=== PATIENT | female | born 1955 | race Caucasian/White ===

== ENCOUNTER → 2021-01-04 11:18 | Outpatient (CLI) | payer MEDICARE, OTHER, SELFPAY ==
--- NOTE | 2021-01-04 11:22 | DI.MG.S_ITS ---
BILATERAL DIGITAL DIAGNOSTIC MAMMOGRAM 3D/2D POST LUMPECTOMY: 01/04/2021 CLINICAL: Right breast lump. Comparison is made to exams dated: 08/08/2013 mammogram, 08/30/2013 mammogram, and 08/09/2019 mammogram - outside facility. The tissue of both breasts is predominantly fatty. There is an irregular high density mass with a spiculated margin and grouped linear heterogeneous pleomorphic calcifications in the right breast at 8 o'clock middle depth. No other significant masses, calcifications, or other findings are seen in either breast. IMPRESSION: INCOMPLETE: NEEDS ADDITIONAL IMAGING EVALUATION The irregular high density mass in the right breast is indeterminate. An ultrasound is recommended. This exam was interpreted at Station ID: [id number]. NOTE: For mammograms, a report in lay terms will be sent to the patient. Approximately 15% of breast malignancies will not be visualized mammographically. In the management of a palpable breast mass, a negative mammogram must not discourage biopsy of a clinically suspicious lesion. Electronically Signed By: Kj Souza M.D., jr/airam:01/04/2021 15:09:53 ACR BI-RADS Category 0: Incomplete 3340F
--- NOTE | 2021-01-04 11:22 | DI.US.S_ITS ---
LIMITED ULTRASOUND OF RIGHT BREAST AND AXILLA: 01/04/2021 CLINICAL: Palpable right breast lump. Comparison is made to exams dated: 01/04/2021 mammogram - [facility], 08/09/2019 mammogram, and 08/30/2013 mammogram - outside facility. Ultrasound of the right breast 7-11 o'clock, and axilla regions was performed. There is a new 1.1 cm x 0.8 cm x 1.1 cm taller than wide irregular mass in the right breast at 9 o'clock middle depth. This irregular mass is hypoechoic. IMPRESSION: SUSPICIOUS OF MALIGNANCY The new 1.1 cm x 0.8 cm x 1.1 cm taller than wide irregular mass in the right breast is suspicious of malignancy. An ultrasound guided biopsy is recommended. This exam was interpreted at Station ID: [id number]. Electronically Signed By: Kj Souza M.D., jr/airam:01/04/2021 15:12:32 letter sent: Biopsy Required Ultrasound BI-RADS: 4 Suspicious for malignancy
[2021-01-04 11:50] LABS: 585 Gram Check PASS; Dizziness NO; Postdiastolic BP 79; Postsystolic BP 144; Prediastolic 78; Presystolic 142; Pulse 77; Site of phlebotomy RAC; Swelling NO; Temperature 97.9; Zero Check Sebra Scale PASS
[2021-01-04 11:51] LABS: Therapeutic Phleb Comment NO COMMENT
== END ==
PROVIDERS: PCP Family Medicine; Referring Provider Internal Medicine Medical Oncology; Visit Provider Family Medicine
DX: R92.8 Other abnormal and inconclusive findings on diagnostic imaging of breast; N63.13 Unspecified lump in the right breast, lower outer quadrant; D75.1 Secondary polycythemia; Z85.3 Personal history of malignant neoplasm of breast
CPT/HCPCS: 76642; 77066; 99195; G0279

== ENCOUNTER → 2021-01-16 10:18 | Outpatient (CLI) | payer MEDICARE, OTHER, SELFPAY ==
[2021-01-16 20:12] LABS: COVID19 - ORCAS (NP or Nasal) Negative (Negative)
== END ==
PROVIDERS: Physician Assistant Medical; PCP Family Medicine; Visit Provider Physician Assistant
DX: Z20.822 Contact with and (suspected) exposure to COVID-19 (principal)
CPT/HCPCS: C9803; U0003

== ENCOUNTER → 2021-01-25 10:39 | Outpatient (CLI) | payer MEDICARE, OTHER, SELFPAY ==
--- NOTE | 2021-01-25 | DI.MG.S_ITS ---
UNILATERAL RIGHT DIGITAL DIAGNOSTIC MAMMOGRAM 3D/2D POST-PROCEDURE IMAGING FOR MARKER PLACEMENT: 01/25/2021 CLINICAL: Right post clip. Comparison is made to exams dated: 01/04/2021 ultrasound, 01/04/2021 mammogram - [facility], and 08/09/2019 mammogram - outside facility. The tissue of right breast is predominantly fatty. There is an irregular high density mass with a spiculated margin and grouped linear heterogeneous pleomorphic calcifications in the right breast at 8 o'clock middle depth. A biopsy marker clip adjacent to this mass is present. No other significant masses or calcifications are seen in the breast. IMPRESSION: INCOMPLETE: NEEDS ADDITIONAL IMAGING EVALUATION Post biopsy film demonstrates appropriate positioning of marker clip. This exam was interpreted at Station ID: [id number]. NOTE: For mammograms, a report in lay terms will be sent to the patient. Approximately 15% of breast malignancies will not be visualized mammographically. In the management of a palpable breast mass, a negative mammogram must not discourage biopsy of a clinically suspicious lesion. Electronically Signed By: Leigha waite/:01/25/2021 14:26:51 ACR BI-RADS Category 0: Incomplete 3340F
--- NOTE | 2021-01-25 | PATH_ITS ---
[facility] Accession Number: [id number] . 01 Material submitted: . breast - RIGHT BREAST MASS 9:30 5 CENTIMETERS FROM NIPPLE . 01 Diagnosis: Right Breast Mass, 9:30, 5 cm from the Nipple, Needle Core Biopsy: Invasive mammary carcinoma. Histologic type: Ductal. Histologic grade: Poorly differentiated, grade 3/3. Combined total Reji histologic score: 8 (tubule formation score 3/3, nuclear pleomorphism score 2/3, mitotic score 3/3). Largest linear dimension of invasive carcinoma: 5 mm. 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 See comment. Lymphovascular invasion: See comment. . MRV 01/28/2021 1321 Local . 01 Comment: There are circumscribed areas of necrosis with associated calcifications which may represent DCIS. There is necrotic tumor present in a vessel lumen which likely represents carryover tumor. Predictive and prognostic breast markers will be performed and the results will be reported in an addendum. As part of ongoing billing and quality technician, this case is also reviewed by Dr. Danielle Gutierrez, who concurs with the given interpretation. Findings were called to Dr.James Wynn on 01/28/2021 at 115 hours by . . 01 Electronically signed: . Cookie Rosenthal MD, Pathologist NPI- [id number] . 01 Gross description: . Received in formalin, labeled RT breast 9:30, are six fragments of mitchell adipose tissue measuring 1.5 x 0.2 x 0.1 cm to 0.3 x 0.3 x 0.2 cm. All six fragments are entirely submitted in cassette A1. Collection date and time is listed as 01/25/21 at 10:50 a.m., for a total fixation time of approximately 53 hours. ([id number]) /FRR 01/26/2021 [facility] . Pathologist provided ICD-10: N63.10, C50.911 . 01 CPT . 894684 Performed at: 01 [facility] [address] [address], [place], [place] [id number] MD Ambrosio Oneal MD Phone: [phone]
--- NOTE | 2021-01-25 10:41 | DI.US.S_ITS ---
ULTRASOUND GUIDED BIOPSY RIGHT BREAST WITH MARKING DEVICE INSERTED AND POST DIGITAL MAMMOGRAPHIC IMAGIN01/25/2021 CLINICAL: Right breast mass. PATIENT CONSENT: Risks (minor bleeding, infection, vasovagal reaction and repeat procedure), benefits and alternatives were explained to the patient and written informed consent was obtained. Correlation is made to exams dated: 01/25/2021 mammogram, 01/04/2021 ultrasound, 01/04/2021 mammogram - [facility], 08/09/2019 mammogram, 08/30/2013 mammogram, and 08/08/2013 mammogram - outside facility. An ultrasound guided biopsy using real-time ultrasound was performed for the 1.1 cm x 0.8 cm x 1.1 cm abnormality located in the right breast at 9 o'clock middle depth. The skin was prepped in the usual manner. A biopsy needle was placed adjacent to the abnormality under ultrasound guidance. Once the needle was documented to be in the correct location, a specimen was obtained using an automated biopsy gun. A biopsy marker clip was deployed. The specimen was sent to the laboratory for pathological analysis. IMPRESSION: ULTRASOUND GUIDED BIOPSY MALIGNANT Ultrasound guided biopsy of the 1.1 cm x 0.8 cm x 1.1 cm mass in the right breast at 9 o'clock middle depth was successful. Pathology indicates malignant invasive mammary carcinoma (IMC) and ductal carcinoma in situ (DCIS). Pathology results are concordant with mammography and ultrasound findings. Surgical and oncologic consultation are recommended. This exam was interpreted at Station ID: [id number]. Leigha waite,monalisa/:01/29/2021 11:20:16
== END ==
PROVIDERS: PCP Family Medicine; Referring Provider Family Medicine; Visit Provider Family Medicine
DX: C50.411 Malignant neoplasm of upper-outer quadrant of right female breast (principal); Z85.3 Personal history of malignant neoplasm of breast
CPT/HCPCS: 19083; 77065

== ENCOUNTER → 2021-02-20 15:01 | Outpatient (CLI) | payer MEDICARE, BC, SELFPAY ==
[2021-02-20 17:11] LABS: COVID19 -Nasal RAPID Negative (Negative)
== END ==
PROVIDERS: PCP Family Medicine; Referring Provider Surgery; Visit Provider Surgery
DX: Z20.822 Contact with and (suspected) exposure to COVID-19 (principal); Z01.812 Encounter for preprocedural laboratory examination
CPT/HCPCS: 87635; C9803

== ENCOUNTER 2021-02-21 11:56 | Day surgery (SDC) | payer MEDICARE, BC, SELFPAY ==
[2021-02-21 12:11] VITALS: BMI 25.8
[2021-02-21 12:28] VITALS: BP 100/65; PULSE 67; RESP 16; TEMP 36.7; O2SAT 98
[2021-02-21] MEDS: LACTATED RINGERS 1,000 ML 42 ML IV (12:48)
--- NOTE | 2021-02-21 13:04 | PM.HP.1 ---
History of Present Illness History of Present Illness Date Patient Seen: 02/21/21 Time Patient Seen: 13:04 Chief complaint: SCREENING COLONOSCOPY Narrative: The patient presents for colorectal sreening. She had a previous colonoscopy 6 years ago demonstrated benign polyps. No personal or family history of colon cancer. On further history denies any recent gastrointestinal symptoms. No nausea, vomiting, abdominal pain, loss of appetite, unexplained weight loss, change in bowel habits, diarrhea, constipation, melena, hematochezia, or bright red blood per rectum. Patient History Medical History Arthritis Asthma Breast cancer Constipation Fibromyalgia syndrome Hx: UTI (urinary tract infection) Hypothyroid Mild obstructive sleep apnea Family & Social History Social History: household members spouse Tobacco & Substance use: Smoking Status Never smoker alcohol intake never Substance Use Type does not use Meds Home Medications and Allergies Home Medications Medication Instructions Recorded Confirmed Type naturethroid 90 mg PO DAILY 09/24/20 02/21/21 History Allergies Allergy/AdvReac Type Severity Reaction Status Date / Time moxifloxacin [From Avelox] AdvReac Mild Dizziness Verified 02/21/21 11:57 procaine [From Novocain] AdvReac Mild palpitation, Verified 02/21/21 11:57 lightheadedness Exam Vital Signs (past 8 hours): - 02/21/21 12:28 Temperature 98.1 F Pulse Rate 67 Respiratory Rate 16 Blood Pressure 100/65 Pulse Oximetry 98 Oxygen Delivery Method Room Air Narrative Exam Narrative: Constitutional-She is oriented to person, place and time. No apparent distress Cardiovascular- regular rate, no peripheral edema Pulmonary-unlabored respiratory effort, no audible wheezing Abdominal-soft, non-tender, non-distended Musculoskeletal-no cyanosis or clubbing Neurological-nonfocal, normal strength throughout Skin-warm and dry Assessment & Plan Assessment and plan (1) Colon polyp: Qualifiers: Colon polyp type: unspecified Colon location: unspecified part of colon Qualified Code(s): K63.5 - Polyp of colon Status: Acute Assessment & Plan narrative: The patient requires colorectal screening and colonoscopy is recommended. Technical details were discussed. Risks, benefits, alternatives explained. Risks including but not limited to myocardial infarction, aspiration, bleeding, pain, missed lesion, incomplete examination, need for further radiographic studies, colonic perforation, and need for major abdominal surgery were discussed. All questions were answered to their satisfaction, and they are in agreement with this plan. Time Spent With Patient Critical Care time: I spent a total of [] minutes of critical care time on this patient's care today; this time is exclusive of procedural time.
[2021-02-21] MEDS: fentaNYL 250 MCG/5 ML INJ IV (13:16)
[2021-02-21] MEDS: MIDAZOLAM 5 MG/5 ML VIAL IV (13:17)
--- NOTE | 2021-02-21 13:35 | PM.OP.COLON ---
Operative Date/Time/Diagnoses Date of procedure: 02/21/21 Time of procedure: 13:35 Pre-op diagnosis: Personal history of colonic polyps Post-op diagnosis: same Procedure & Clinicians Study performed: Colonoscopy Same procedure as scheduled: Yes Indications: Personal history of colonic polyps Surgeon: Roni Amaya Procedure Notes Procedure in detail: Medications: Conscious sedation using 5mg IV midazolam and 150mcg IV of fentanyl The history and physical was performed/updated and the patient is ASA class is 2. The procedure was discussed in detail with the patient. Potential risks complications including infection, bleeding, missed diagnosis, perforation, need for surgery, and were explained. Their questions were answered and informed consent was obtained. Patient was brought to the procedure room and placed standard monitoring equipment. The patient's vital signs were monitored continuously throughout the entire procedure. Prior to starting time-out was performed. The patient was placed in the left lateral recumbent position. Procedural sedation was administered. Examination began with a thorough inspection of the perianal area there was no evidence of fissures, fistulae, external hemorrhoids or cutaneous malignancy. The colonoscopy scope was then placed into the anal canal and was advanced to the cecum, which was identified by the ileocecal valve, the appendiceal orifice and the confluence of the taenia. The scope was then slowly withdrawn examining colon thoroughly in all directions, irrigating it of any residual stool. FINDINGS 1. No masses or polyps 2. Sigmoid diverticulosis The patient tolerated the procedure well. They will be discharged once criteria are met. The prep was of good/excellent quality. The withdrawl time was 6 minutes. The sedation time was 23 minutes. Specimen(s): none sent Complications: none Impression: Normal colonoscopy Post-procedure Recommendations: Colonoscopy in 10 years Disposition: same day surgery
[2021-02-21 13:38] VITALS: BP 117/60; PULSE 68; RESP 17; TEMP 36.6; O2SAT 96
[2021-02-21 13:43] VITALS: BP 110/58; PULSE 63; RESP 15; TEMP 36.1; O2SAT 97
[2021-02-21 13:50] VITALS: BP 99/54; PULSE 66; RESP 16; TEMP 36.5; O2SAT 96
[2021-02-21 13:54] VITALS: BP 104/66; PULSE 67; RESP 17; TEMP 36.4; O2SAT 97
[2021-02-21 14:05] VITALS: BP 107/68; PULSE 64; RESP 18; O2SAT 98
== END 2021-02-21 14:20 | disposition home or self-care (01) ==
PROVIDERS: PCP Family Medicine; Referring Provider Surgery; Visit Provider Surgery
PROC: 0DJD8ZZ Inspection of Lower Intestinal Tract, Via Natural or Artificial Opening Endoscopic (ICD-10-PCS; CPT 45378; principal; 2021-02-21 13:00)
DX: Z12.11 Encounter for screening for malignant neoplasm of colon (principal); Z86.010 Personal history of colon polyps; E03.9 Hypothyroidism, unspecified; G47.33 Obstructive sleep apnea (adult) (pediatric); M79.7 Fibromyalgia; K57.30 Diverticulosis of large intestine without perforation or abscess without bleeding
CPT/HCPCS: G0105; 99152; J2250; J3010

== ENCOUNTER → 2021-03-04 09:05 | Outpatient (CLI) | payer MEDICARE, BC, SELFPAY ==
[2021-03-04 21:25] LABS: COVID19 - ORCAS (NP or Nasal) Negative (Negative)
== END ==
PROVIDERS: PCP Family Medicine; Visit Provider Family Medicine
DX: Z20.822 Contact with and (suspected) exposure to COVID-19 (principal)
CPT/HCPCS: C9803; U0003

== ENCOUNTER → 2021-04-26 11:38 | Outpatient (CLI) | payer MEDICARE, BC, SELFPAY ==
[2021-04-26 19:55] LABS: Add Manual Diff / Slide Review NO; Basophils Absolute Auto 0 /uL (0-100); Basophils Percent Auto 0.7 % (0-2); Eosinophils Absolute Auto 100 /uL (0-450); Eosinophils Percent Auto 1.2 % (2-4); Hematocrit 46.9 % (36-46); Hemoglobin 16.2 g/dL (12.0-16.0); Lymphocytes Absolute Auto 2200 /uL (1100-4500); Lymphocytes Percent Auto 34.1 % (25-40); Mean Corpuscular HGB Conc 34.6 % (30-36); Mean Corpuscular Hemoglobin 33.2 PG (26-34); Mean Corpuscular Volume 95.9 fL (80-100); Monocytes Absolute Auto 400 /uL (0-900); Monocytes Percent Auto 6.8 % (3-14); Neutrophils Absolute Auto 3600 /uL (1500-7000); Neutrophils Percent Auto 57.2 % (50-75); Platelet Count 219 X10^3/uL (150-400); Red Blood Cell Count 4.89 X10^6/uL (4.0-5.2); Red Cell Distribution Width 12.5 % (11.6-14.8); White Blood Cell Count 6.3 X10^3/uL (4.5-11.0)
[2021-04-26 20:00] LABS: Alanine Aminotransferase 33 IU/L (<35); Albumin 4.5 g/dL (3.5-5.0); Albumin Globulin Ratio 1.4 (1.0-2.8); Alkaline Phosphatase 76 U/L (38-126); Aspartate Aminotransferase 35 IU/L (14-36); BUN Creatinine Ratio 22.4 (6-22); Bilirubin Total 0.6 mg/dL (0.2-1.3); Blood Urea Nitrogen 17 mg/dL (7-17); Calcium 9.9 mg/dL (8.4-10.2); Carbon Dioxide 29 mmol/L (22-32); Chloride 100 mmol/L (98-107); Estimated Glomerular Filt Rate > 60.0 mL/min (>60); Globulin 3.3 g/dL (1.7-4.1); Glucose 92 mg/dL (80-110); HEMOLYSIS 16 (0-50); Potassium 4.4 mmol/L (3.4-5.1); Sodium 136 mmol/L (137-145); Total Protein 7.8 g/dL (6.3-8.2)
[2021-04-26 20:35] LABS: Ferritin 74 ng/mL (11-264)
== END ==
PROVIDERS: PCP Family Medicine; Visit Provider Internal Medicine Medical Oncology
DX: E83.119 Hemochromatosis, unspecified (principal)
CPT/HCPCS: 80053; 82728; 85025

== ENCOUNTER → 2021-05-20 09:19 | Outpatient (CLI) | payer MEDICARE, BC, SELFPAY ==
[2021-05-20 21:15] LABS: COVID19 - ORCAS (NP or Nasal) Negative (Negative)
== END ==
PROVIDERS: PCP Family Medicine; Visit Provider Family Medicine
DX: Z20.822 Contact with and (suspected) exposure to COVID-19 (principal)
CPT/HCPCS: C9803; U0003

== ENCOUNTER → 2021-07-02 11:50 | Outpatient (CLI) | payer MEDICARE, BC, SELFPAY ==
[2021-07-02 19:03] LABS: Alanine Aminotransferase 31 IU/L (<35); Albumin 4.5 g/dL (3.5-5.0); Albumin Globulin Ratio 1.6 (1.0-2.8); Alkaline Phosphatase 73 U/L (38-126); Aspartate Aminotransferase 32 IU/L (14-36); BUN Creatinine Ratio 23.3 (6-22); Bilirubin Total 0.6 mg/dL (0.2-1.3); Blood Urea Nitrogen 17 mg/dL (7-17); Calcium 9.5 mg/dL (8.4-10.2); Carbon Dioxide 25 mmol/L (22-32); Chloride 103 mmol/L (98-107); Estimated Glomerular Filt Rate > 60.0 mL/min (>60); Globulin 2.9 g/dL (1.7-4.1); Glucose 93 mg/dL (80-110); HEMOLYSIS 16 (0-50); Potassium 4.3 mmol/L (3.4-5.1); Sodium 135 mmol/L (137-145); Total Protein 7.4 g/dL (6.3-8.2)
== END ==
PROVIDERS: PCP Family Medicine; Visit Provider Family Medicine
DX: H57.11 Ocular pain, right eye (principal)
CPT/HCPCS: 80053

== ENCOUNTER → 2021-07-09 13:50 | Outpatient (CLI) | payer MEDICARE, BC, SELFPAY ==
--- NOTE | 2021-07-09 13:51 | DI.CT.S_ITS ---
PROCEDURE: CT ORBIT BI W CON INDICATIONS: Persistent pain and tenderness, Right eye behind upper lid TECHNIQUE: After the administration of intravenous contrast, 2.5 mm axial images acquired through the orbits, with coronal and sagittal reformats. For radiation dose reduction, the following was used: automated exposure control, adjustment of mA and/or kV according to patient size. COMPARISON: None. FINDINGS: Image quality: Excellent. Orbits: Globes are symmetrical. The optic nerves are normal in size and enhancement. No retrobulbar masses or fat abnormalities. The extra-ocular muscles are normal and symmetrical in appearance. Lacrimal glands are normal. Optic chiasm is normal. Periorbital soft tissues are normal. Intracranial: The pituitary gland is normal, without sellar or suprasellar masses. Visualized cerebral hemispheres, brainstem, and spinal cord appear normal. Bones and sinuses: Visualized calvarium and facial bones appear intact. Visualized sinuses and mastoids are clear. IMPRESSION: Normal CT of the orbits. Dictated by: Kj Souza M.D. on 07/09/2021 at 16:22 Approved by: Kj Souza M.D. on 07/09/2021 at 16:24
== END ==
PROVIDERS: PCP Family Medicine; Referring Provider Family Medicine; Visit Provider Family Medicine
DX: H57.11 Ocular pain, right eye (principal)
CPT/HCPCS: 70481

== ENCOUNTER → 2022-01-15 13:16 | Outpatient (CLI) | payer MEDICARE, BC, SELFPAY ==
[2022-01-15 19:29] LABS: Add Manual Diff / Slide Review NO; Basophils Absolute Auto 0 /uL (0-100); Basophils Percent Auto 0.4 % (0-2); Eosinophils Absolute Auto 100 /uL (0-450); Eosinophils Percent Auto 1.2 % (2-4); Hematocrit 44.6 % (36-46); Hemoglobin 15.5 g/dL (12.0-16.0); Lymphocytes Absolute Auto 2200 /uL (1100-4500); Mean Corpuscular HGB Conc 34.7 % (30-36); Mean Corpuscular Hemoglobin 32.7 PG (26-34); Mean Corpuscular Volume 94.4 fL (80-100); Monocytes Absolute Auto 500 /uL (0-900); Monocytes Percent Auto 6.8 % (3-14); Neutrophils Absolute Auto 4000 /uL (1500-7000); Neutrophils Percent Auto 59.6 % (50-75); Platelet Count 194 X10^3/uL (150-400); Red Blood Cell Count 4.73 X10^6/uL (4.0-5.2); Red Cell Distribution Width 12.9 % (11.6-14.8); White Blood Cell Count 6.8 X10^3/uL (4.5-11.0)
[2022-01-15 19:58] LABS: Alanine Aminotransferase 38 IU/L (<35); Albumin 4.3 g/dL (3.5-5.0); Albumin Globulin Ratio 1.3 (1.0-2.8); Alkaline Phosphatase 72 U/L (38-126); Aspartate Aminotransferase 40 IU/L (14-36); BUN Creatinine Ratio 15.3 (6-22); Bilirubin Total 0.6 mg/dL (0.2-1.3); Blood Urea Nitrogen 11 mg/dL (7-17); Carbon Dioxide 25 mmol/L (22-32); Chloride 103 mmol/L (98-107); Estimated Glomerular Filt Rate > 60 mL/min (>60); Globulin 3.2 g/dL (1.7-4.1); Glucose 79 mg/dL (80-110); HEMOLYSIS < 15 (0-50); Sodium 135 mmol/L (137-145); Total Protein 7.5 g/dL (6.3-8.2); Uric Acid 5.5 mg/dL (2.5-6.2)
[2022-01-15 20:10] LABS: High Sensitivity CRP - Cardiac 0.7 mg/L (1.0-3.0)
[2022-01-15 20:24] LABS: Rheumatoid Factor < 8.6 IU/mL (<12.0)
[2022-01-15 20:32] LABS: Thyroid Stimulating Hormone 0.036 uIU/mL (0.47-4.68)
[2022-01-15 20:43] LABS: Erythrocyte Sedimentation Rate 2 MM/HR (0-20)
[2022-01-16 09:55] LABS: Cholesterol 137 mg/dL (140-199); HDL Cholesterol 36 mg/dL (40-60); LDL Cholesterol Calculated 63 mg/dL (<100); Triglycerides 188 mg/dL (35-150)
[2022-01-21 12:39] LABS: Vitamin D 25 Hydroxy (D3) 52.7 ng/mL (30.0-100.0)
[2022-01-21 12:41] LABS: Free T4, Direct Thyroxine 1.34 ng/dL (0.78-2.19)
== END ==
PROVIDERS: Family Medicine; Physician Assistant Medical; PCP Family Medicine; Visit Provider Ophthalmology
DX: M35.00 Sjogren syndrome, unspecified (principal); R74.01 Elevation of levels of liver transaminase levels; R00.0 Tachycardia, unspecified; H16.223 Keratoconjunctivitis sicca, not specified as Sjogren's, bilateral; R79.89 Other specified abnormal findings of blood chemistry
CPT/HCPCS: 80053; 80061; 82306; 84439; 84443; 84550; 85025; 85651; 86140; 86430

== ENCOUNTER → 2022-01-28 10:02 | Outpatient (CLI) | payer MEDICARE, BC, SELFPAY ==
--- NOTE | 2022-01-28 10:06 | DI.MG.S_ITS ---
UNILATERAL LEFT DIGITAL DIAGNOSTIC MAMMOGRAM 3D/2D POST MASTECTOMY: 01/28/2022 CLINICAL: Left nodularities and discomfort. Comparison is made to exams dated: 01/04/2021 mammogram - [facility] and 08/09/2019 mammogram - outside facility. There are scattered areas of fibroglandular density in the left breast (category b / 25%-50% glandular tissue). There is a stable biopsy clip in the left breast. No significant masses, calcifications, or other findings are seen in the breast. IMPRESSION: INCOMPLETE: NEEDS ADDITIONAL IMAGING EVALUATION There is no abnormality seen in the left breast to correspond with the palpable abnormality, pain, and redness, however, ultrasound is recommended. Due to patient's time constraints, patient will return for left breast ultrasound to complete workup the following day (currently scheduled to return 01/29/22 at 3:30PM). This exam was interpreted at Station ID: [id number]. NOTE: For mammograms, a report in lay terms will be sent to the patient. Approximately 15% of breast malignancies will not be visualized mammographically. In the management of a palpable breast mass, a negative mammogram must not discourage biopsy of a clinically suspicious lesion. Electronically Signed By: Jules Brannon M.D. ar/:01/28/2022 13:33:31 letter sent: Need Ultrasound ACR BI-RADS Category 0: Incomplete 3340F
== END ==
PROVIDERS: PCP Family Medicine; Referring Provider Family Medicine; Visit Provider Family Medicine
DX: R92.8 Other abnormal and inconclusive findings on diagnostic imaging of breast (principal); Z90.11 Acquired absence of right breast and nipple; N64.4 Mastodynia
CPT/HCPCS: 77065; G0279

== ENCOUNTER → 2022-01-29 15:10 | Outpatient (CLI) | payer MEDICARE, BC, SELFPAY ==
--- NOTE | 2022-01-29 15:13 | DI.US.S_ITS ---
ULTRASOUND OF LEFT BREAST AND AXILLA: 01/29/2022 CLINICAL: Palpable left breast lump and tenderness. Comparison is made to exams dated: 01/28/2022 mammogram, 01/04/2021 mammogram - [facility], 08/09/2019 mammogram, 08/30/2013 mammogram, 08/08/2013 mammogram, and 07/13/2012 mammogram - outside facility. Ultrasound of the left breast axilla was performed. Rush scale images of the real-time examination were reviewed. No significant abnormalities were seen sonographically in the left breast or the left axilla. Specifically, no finding to correspond to the patient's palpable abnormality. IMPRESSION: NEGATIVE There is no sonographic correlate to the patient's palpable abnormality and no evidence of malignancy. No axillary adenopathy. Return to annual mammogram screening schedule is recommended. Findings and recommendations were conveyed to the patient at time of exam. This exam was interpreted at Station ID: [id number]. Electronically Signed By: Gracie robles/:01/29/2022 15:49:01 letter sent: Normal Exam Ultrasound BI-RADS: 1 Negative
== END ==
PROVIDERS: PCP Family Medicine; Referring Provider Family Medicine; Visit Provider Family Medicine
DX: R92.8 Other abnormal and inconclusive findings on diagnostic imaging of breast (principal)
CPT/HCPCS: 76642

== ENCOUNTER → 2022-02-10 10:51 | Outpatient (CLI) | payer MEDICARE, BC, SELFPAY ==
[2022-02-10 20:18] LABS: Add Manual Diff / Slide Review NO; Basophils Absolute Auto 0 /uL (0-100); Basophils Percent Auto 0.8 % (0-2); Eosinophils Absolute Auto 100 /uL (0-450); Eosinophils Percent Auto 1.5 % (2-4); Hematocrit 47.2 % (36-46); Hemoglobin 16.8 g/dL (12.0-16.0); Lymphocytes Absolute Auto 2000 /uL (1100-4500); Lymphocytes Percent Auto 36.5 % (25-40); Mean Corpuscular HGB Conc 35.5 % (30-36); Mean Corpuscular Hemoglobin 33.3 PG (26-34); Mean Corpuscular Volume 93.8 fL (80-100); Monocytes Absolute Auto 500 /uL (0-900); Monocytes Percent Auto 8.4 % (3-14); Neutrophils Absolute Auto 2900 /uL (1500-7000); Neutrophils Percent Auto 52.8 % (50-75); Platelet Count 202 X10^3/uL (150-400); Red Blood Cell Count 5.03 X10^6/uL (4.0-5.2); Red Cell Distribution Width 12.9 % (11.6-14.8); White Blood Cell Count 5.5 X10^3/uL (4.5-11.0)
[2022-02-10 20:44] LABS: Free T4, Direct Thyroxine 0.81 ng/dL (0.78-2.19)
[2022-02-12 21:34] LABS: SS A Ro Sjogrens Antibody < 0.2 AI (0.0-0.9); SS B La Sjogrens Antibody < 0.2 AI (0.0-0.9)
== END ==
PROVIDERS: Ophthalmology; PCP Family Medicine; Visit Provider Family Medicine
DX: R00.2 Palpitations (principal); E83.119 Hemochromatosis, unspecified; M35.00 Sjogren syndrome, unspecified
CPT/HCPCS: 84439; 84443; 85025; 86235

== ENCOUNTER → 2022-02-13 14:02 | Outpatient (CLI) | payer MEDICARE, BC, SELFPAY ==
--- NOTE | 2022-02-13 14:05 | DI.NM.S_ITS ---
PROCEDURE: NM EXERCISE TREADMILL NON NUC COMPARISON: None. INDICATIONS: Evaluation for dyspnea and palpitations FINDINGS: Rest ECG sinus rhythm. Martin protocol 4:33, maximum heart rate 131 bpm (86% peak predicted), maximum blood pressure 160/70, 7.0 METS, CISCO +25%. Stress ECG sinus tachycardia, no ST segment changes, ectopy or arrhythmia. IMPRESSION: No evidence of exercise-induced ischemia or arrhythmia. Normal hemodynamic response to exercise. Reduced exercise capacity. Dictated by: Lucretia Mcdonald D.O. on 02/13/2022 at 16:48 Approved by: Lucretia Mcdonald D.O. on 02/13/2022 at 16:52
[2022-02-13 17:59] LABS: COVID19 -Nasal RAPID Negative (Negative)
== END ==
PROVIDERS: PCP Family Medicine; Referring Provider Family Medicine; Visit Provider Family Medicine
DX: R00.2 Palpitations (principal); R06.00 Dyspnea, unspecified; Z20.822 Contact with and (suspected) exposure to COVID-19
CPT/HCPCS: 87635; 93017

== ENCOUNTER → 2022-02-17 14:49 | Outpatient (CLI) | payer MEDICARE, BC, SELFPAY ==
[2022-02-20 22:23] LABS: ANA Screen, IFA Positive (.)
== END ==
PROVIDERS: PCP Family Medicine; Visit Provider Ophthalmology
DX: M35.00 Sjogren syndrome, unspecified (principal)
CPT/HCPCS: 86038

== ENCOUNTER → 2022-10-22 13:38 | Outpatient (CLI) | payer MEDICARE, BC, SELFPAY ==
[2022-10-22 19:39] LABS: Add Manual Diff / Slide Review NO; Basophils Absolute Auto 0 /uL (0-100); Basophils Percent Auto 0.8 % (0-2); Eosinophils Absolute Auto 100 /uL (0-450); Eosinophils Percent Auto 1.2 % (2-4); Hematocrit 44.7 % (36-46); Hemoglobin 15.8 g/dL (12.0-16.0); Lymphocytes Absolute Auto 2000 /uL (1100-4500); Lymphocytes Percent Auto 32.9 % (25-40); Mean Corpuscular HGB Conc 35.5 % (30-36); Mean Corpuscular Hemoglobin 33.3 PG (26-34); Mean Corpuscular Volume 93.8 fL (80-100); Monocytes Absolute Auto 400 /uL (0-900); Monocytes Percent Auto 6.1 % (3-14); Neutrophils Absolute Auto 3600 /uL (1500-7000); Platelet Count 229 X10^3/uL (150-400); Red Blood Cell Count 4.76 X10^6/uL (4.0-5.2); Red Cell Distribution Width 12.8 % (11.6-14.8)
[2022-10-22 19:48] LABS: Alanine Aminotransferase 31 IU/L (<35); Albumin 4.6 g/dL (3.5-5.0); Albumin Globulin Ratio 1.5 (1.0-2.8); Alkaline Phosphatase 95 U/L (38-126); Aspartate Aminotransferase 30 IU/L (14-36); BUN Creatinine Ratio 18.3 (6-22); Bilirubin Total 0.7 mg/dL (0.2-1.3); Blood Urea Nitrogen 13 mg/dL (7-17); Calcium 9.4 mg/dL (8.4-10.2); Carbon Dioxide 26 mmol/L (22-32); Chloride 97 mmol/L (98-107); Estimated Glomerular Filt Rate > 60 mL/min (>60); Glucose 107 mg/dL (80-110); HEMOLYSIS 15 (0-50); Potassium 4.1 mmol/L (3.4-5.1); Sodium 132 mmol/L (137-145); Total Protein 7.6 g/dL (6.3-8.2)
[2022-10-22 20:22] LABS: Ferritin 72 ng/mL (11-264)
== END ==
PROVIDERS: PCP Family Medicine; Visit Provider Internal Medicine Medical Oncology
DX: E83.119 Hemochromatosis, unspecified (principal)
CPT/HCPCS: 80053; 82728; 85025

== ENCOUNTER → 2023-03-30 14:41 | Outpatient (CLI) | payer MEDICARE, BC, SELFPAY ==
--- NOTE | 2023-03-30 | DI.US.S_ITS ---
PROCEDURE: US ABDOMEN LIMITED INDICATIONS: RUQ PAIN; HX HORNE TECHNIQUE: Real-time scanning was performed of the abdominal and retroperitoneal organs, with image documentation. COMPARISON: None. FINDINGS: Liver: Liver is normal in size and show diffusely increased liver parenchymal echotexture. No discrete hepatic lesion. Gallbladder: Gallbladder is within normal limits. Biliary ducts: Intrahepatic bile ducts are non-dilated. Extrahepatic bile duct caliber measures 5.3 mm. Normal is 6-7 mm or less in diameter, or 10 mm or less post-cholecystectomy. Pancreas: Visualized portions of the pancreas are sonographically normal. IMPRESSION: 1. Hepatic steatosis, no discrete hepatic lesion. 2. Normal appearing gallbladder. No biliary ductal dilatation. Normal appearing pancreas. Dictated by: Gee Odonnell M.D. on 03/30/2023 at 17:24 Approved by: Gee Odonnell M.D. on 03/30/2023 at 17:25
== END ==
PROVIDERS: PCP Family Medicine; Referring Provider Naturopath; Visit Provider Naturopath
DX: K75.81 Nonalcoholic steatohepatitis (NASH) (principal); R10.11 Right upper quadrant pain; R10.31 Right lower quadrant pain
CPT/HCPCS: 76705

== ENCOUNTER → 2024-04-21 11:52 | Outpatient (CLI) | payer MEDICARE, BC, SELFPAY | PROVIDERS: PCP Physician Assistant Medical; Referring Provider Physician Assistant Medical; Visit Provider Physician Assistant Medical | DX: R79.89 Other specified abnormal findings of blood chemistry (principal); R06.02 Shortness of breath; Z77.120 Contact with and (suspected) exposure to mold (toxic); J45.909 Unspecified asthma, uncomplicated | CPT/HCPCS: 94060; 94726; 94729 ==

== ENCOUNTER → 2024-05-13 10:27 | Outpatient (CLI) | payer MEDICARE, BC, SELFPAY ==
--- NOTE | 2024-05-13 21:42 | DI.NM.S_ITS ---
DATE OF SERVICE: 05/13/2024 NUCLEAR CARDIOLOGY MYOCARDIAL PERFUSION STUDY PROCEDURE: Exercise treadmill stress and rest myocardial perfusion imaging with gating to assess ejection fraction and regional wall motion. ORDERING PROVIDER: Vashti Whitlock PA-C. INDICATIONS: The patient is a 68-year-old female with exertional dyspnea and palpitations. CARDIAC STRESS: The patient was able to exercise for 5 minutes 16 seconds on a standard Martin protocol suggesting mildly impaired exercise capacity with an CISCO of +9%. She had a normal heart rate and blood pressure response to exercise, achieving a maximum heart rate of 149 BPM (99% of her predicted maximum). She had no chest discomfort and stopped because of dyspnea. Her resting ECG is normal and there are no significant ST-segment shifts or arrhythmias with stress. Oxygen saturation was >97% at peak exercise. At 3 minutes 42 seconds of exercise at a heart rate of 129 BPM, 25.0 millicuries of technetium-99m Myoview was injected and she was imaged 15 minutes later using a gated SPECT acquisition protocol. Earlier in the day while at rest, she had been injected with 9.7 millicuries of technetium-99m Myoview, and imaged 15 minutes later, again using a gated SPECT acquisition protocol. FINDINGS: 1. Raw data. There is fairly good myocardial tracer uptake with moderate breast shadows noted, more so on the post-stress images. The lung/heart ratio is normal at 0.27 with a normal TID ratio of 1.06. 2. Quantitated gated SPECT: Post-stress ejection fraction is 80% without any focal wall motion abnormality. Resting ejection fraction is 88% with a normal end-diastolic volume of 85 mL. 3. Myocardial perfusion imaging: Post-stress supine images show a fairly normal myocardial perfusion pattern with only a minimal defect anteriorly that resolves on prone imaging, consistent with breast attenuation artifact. The resting images show an identical perfusion pattern without any clear areas of improvement. IMPRESSION: 1. Normal myocardial perfusion study. 2. No evidence for myocardial ischemia or previous myocardial infarction but mild breast attenuation artifact. 3. Normal left ventricular size and systolic function without focal wall motion abnormality. 4. Mildly impaired exercise capacity without angina or ECG evidence of ischemia and limiting dyspnea despite normal oxygen saturation levels. There were no arrhythmias. Lindsay Murphy - JEAN-PIERRE/rory/AVA doc#: [id number]/job#: [id number] dd: 05/13/2024 17:01:00 dt: 05/13/2024 21:24:00 DICTATING MD/COPIES TO: Derik Lindo MD; Vashti Whitlock PA-C COPIES MNE: ANDIE;
== END ==
PROVIDERS: PCP Physician Assistant Medical; Referring Provider Physician Assistant Medical; Visit Provider Physician Assistant Medical
DX: I49.3 Ventricular premature depolarization (principal); R06.02 Shortness of breath
CPT/HCPCS: 78452; 93017; A9502

== ENCOUNTER → 2024-05-30 06:45 | Outpatient (CLI) | payer MEDICARE, BC, SELFPAY ==
--- NOTE | 2024-05-30 06:47 | DI.ECHO.S_ITS ---
[place] [facility] : : [address] : : [place] : : [id number] : : Phone: [phone] Echocardiogram Report + + :Name: MORAIMA JOSE GStudy Date: 05/30/2024 Height: 67 in : :[facility] ReadingLocation: Weight: 178 lb : : Gender: Female BSA: 1.9 m2 : :: 1955 Age: 69 yrs BP: 135/81 mmHg: :Reason For Study: PALPITATIONS, SHORTNESS OF BREATH : :Ordering Physician: LORENA RODRIGUEZPerformed By: Kj Pham : :Referring: LORENA RODRIGUEZ : + + Interpretation Summary The ejection fraction is estimated to be 55-60%. Diastolic parameters suggest probable normal left ventricular diastolic function and normal filling pressures. The right ventricle is normal in size and function. No significant valvular abnormality. Procedure: A two-dimensional transthoracic echocardiogram with color flow and Doppler was performed. The study quality was technically good. There is no prior echocardiogram noted for this patient. The patient was in normal sinus rhythm during the exam. Left Ventricle: The left ventricle is normal in size. There is normal left ventricular wall thickness. There is no ventricular septal defect visualized. The ejection fraction is estimated to be 55-60%. There are no focal wall motion abnormalities. Diastolic parameters suggest probable normal left ventricular diastolic function and normal filling pressures. Right Ventricle: The right ventricle is normal in size and function. Atria: The left atrial size is normal. The right atrium is mildly dilated. There is no Doppler evidence for an interatrial shunt. Mitral Valve: The mitral valve is normal in structure and function. There is trace mitral regurgitation. Aortic Valve: The aortic valve is trileaflet. The aortic valve opens well. There is no hemodynamically significant valvular aortic stenosis. No aortic regurgitation is present. Tricuspid Valve: The tricuspid valve leaflets are thin and pliable. There is a trace or physiologic amount of tricuspid regurgitation. Pulmonic Valve: The pulmonic valve leaflets are thin and pliable; valve motion is normal. There is trace pulmonic regurgitation. Great Vessels: The aortic root is normal size. The dimensions of the ascending aorta are normal. The pulmonary artery is normal size. The IVC is of normal diameter and collapses greater than 50% with a sniff. This suggests a low right atrial pressure of 3 mm Hg. Pericardium/ Pleura There is no pericardial effusion. There is no pleural effusion. MMode/2D Measurements & Calculations LVIDd: 4.8 cm LVOT diam: 1.9 cm LVIDs: 3.0 cm Ao root diam: 2.7 cm FS: 38.3 % asc Aorta Diam: 2.7 cm EPSS: 0.43 cm IVSd: 0.94 cm LVPWd: 0.90 cm LV linares. diameter/BSA (cm/m^2): 2.5 LV sys. diameter/BSA (cm/m^2): 1.5 LA A2 area: 18.2 cm2 RA long axis: 4.7 cm LA A4 area: 21.1 cm2 RA area: 16.1 cm2 LA length (vol): 5.8 cm RA vol: 46.9 ml LA vol: 56.5 ml RA : 24.4 ml/m2 LA vol index: 29.4 ml/m2 IVC diam: 1.6 cm RVD1 (basal): 3.7 cm RVD2 (mid): 2.9 cm TAPSE: 2.1 cm Doppler Measurements & Calculations Ao V2 max: 158.4 cm/sec LVOT Max Sidney: 103.9 cm/sec Ao V2 mean: 113.4 cm/sec LV V1 max P.3 mmHg Ao max P.0 mmHg LV V1 VTI: 25.8 cm Ao mean P.6 mmHg ESTHER(I,D): 2.0 cm2 Ao V2 VTI: 37.6 cm ESTHER(V,D): 1.9 cm2 sev ratio: 0.69 ESTHER indexed to BSA (cm^2/m^2): 1.1 MV E max sidney: 75.8 cm/sec TR max sidney: 219.2 cm/sec MV A max sidney: 68.8 cm/sec TR max P.2 mmHg MV E/A: 1.1 PA V2 max: 75.7 cm/sec Med Peak E' Sidney: 6.9 cm/sec PA V2 mean: 57.3 cm/sec E/E' med: 11.0 PA mean P.4 mmHg Lat Peak E' Sidney: 7.1 cm/sec PA pr(Accel): 37.9 mmHg E/E' lat: 10.7 E/e' average: 10.9 MV dec time: 0.22 sec SV(LVOT): 76.2 ml Reading Physician:ELIUD
== END ==
PROVIDERS: PCP Physician Assistant Medical; Referring Provider Physician Assistant Medical; Visit Provider Physician Assistant Medical
DX: R06.02 Shortness of breath (principal)
CPT/HCPCS: 93306; 93307

== ENCOUNTER → 2024-07-19 10:53 | Outpatient (CLI) | payer MEDICARE, BC, SELFPAY ==
--- NOTE | 2024-07-19 10:55 | DI.CT.S_ITS ---
PROCEDURE: CT CHEST WO CON INDICATIONS: dyspnea, chronic TECHNIQUE: Noncontrast 5 mm thick sections acquired from the pulmonary apices to the posterior costophrenic angles. 1 mm lung window, 5 mm thick coronal and sagittal and 7 mm axial MIP reformats were then acquired. For radiation dose reduction, the following was used: automated exposure control, adjustment of mA and/or kV according to patient size. COMPARISON: None. FINDINGS: Image quality: Diagnostic. Lower Neck: No enlarged lymph nodes. Thyroid: No thyroid nodules which require sonographic follow up, per consensus guidelines. Axillae: No enlarged lymph nodes. Chest Wall: Remote right mastectomy. Bones: Unremarkable. Lungs and Pleura: No pneumothorax or pleural effusions. Scattered micro nodules, none of which are greater than 3 mm. For instance, reference extreme right lung base pleural based nodule measuring 2 mm on axial image 275 of series 3. Also note 3 mm pulmonary nodule in the right lower lobe on image 234. Also note 1 mm pulmonary nodule, right middle lobe, image 164. Reference 2 mm left upper lobe pulmonary nodule image 121. Reference 2 mm pulmonary nodule, left lower lobe, image 181. Heart: Heart size is normal. No pericardial effusion. Thoracic Vessels: The aorta and pulmonary arteries demonstrate normal size. Mediastinum and Myrna: No enlarged lymph nodes. Esophagus: No wall thickening. No hiatal hernia. Upper Abdomen: Visualized upper abdomen solid organs and bowel loops appear normal. IMPRESSION: 1. Normal pulmonary architecture noted without findings of chronic pulmonary fibrosis. No acute pulmonary process. 2. Multiple tiny pulmonary nodules, none of which are greater than 3 mm, very likely benign. 3. Remote right mastectomy. Comment: Consider optional 12 month follow-up CT. Dictated by: Sherman Manzanares M.D. on 07/19/2024 at 15:20 Approved by: Sherman Manzanares M.D. on 07/19/2024 at 15:25
== END ==
LOC: CT 10:54
PROVIDERS: PCP Family Medicine; Referring Provider Family Medicine; Visit Provider Family Medicine
DX: R06.02 Shortness of breath (principal); Z90.11 Acquired absence of right breast and nipple
CPT/HCPCS: 71250

== ENCOUNTER → 2024-08-03 15:04 | Outpatient (CLI) | payer MEDICARE, BC, SELFPAY ==
--- NOTE | 2024-08-03 15:07 | DI.RAD.S_ITS ---
PROCEDURE: XR HIP W PEL IF DONE BILAT 2V INDICATIONS: Bilateral hip pain. Patient requests hip imaging TECHNIQUE: AP pelvis with lateral view(s) of the bilateral hip(s). COMPARISON: None. FINDINGS: Bones: No fractures or dislocations. 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 Pelvic ring appears intact. No suspicious bony lesions. Soft tissues: The visualized bowel gas pattern is normal. No suspicious soft tissue calcifications. IMPRESSION: Degenerative changes of the bilateral hips without evidence of acute osseous abnormality. Dictated by: Arvind Prado M.D. on 08/04/2024 at 19:41 Approved by: Arvind Prado M.D. on 08/04/2024 at 19:41
== END ==
LOC: RAD 15:06
PROVIDERS: PCP Family Medicine; Referring Provider Physician Assistant; Visit Provider Physician Assistant
DX: M16.0 Bilateral primary osteoarthritis of hip (principal); M25.559 Pain in unspecified hip
CPT/HCPCS: 73521

== ENCOUNTER → 2024-10-31 14:54 | Outpatient (CLI) | payer MEDICARE, BC, SELFPAY ==
[2024-10-31 15:07] LABS: Appearance Urine UA CLEAR; Bilirubin Urine UA NEGATIVE (NEGATIVE); Color Urine UA YELLOW; Glucose Urine UA NEGATIVE (Negative); Ketones Urine UA NEGATIVE (NEGATIVE); Leukocyte Esterase Urine UA NEGATIVE (NEGATIVE); Nitrite Urine UA NEGATIVE (Negative); Occult Blood Urine UA NEGATIVE (Negative); Protein Urine UA NEGATIVE (Negative); Urobilinogen Urine UA 0.2 E.U./dL (0.2)
[2024-10-31 15:08] LABS: pH Urine UA 7.5 (4.5-8.0)
[2024-10-31 15:13] LABS: Bacteria Urine Occasional (0-1); Culture Indicated Urine Cult Not Indicated; RBC Urine 0-1/HPF (0-5/HPF); Squamous Epithelial Cell Urine 0-1 /HPF (0-5/HPF); Urine Volume 10mL (spun); WBC Urine 0-1/HPF (0-5/HPF)
== END ==
PROVIDERS: PCP Family Medicine; Visit Provider Obstetrics & Gynecology Gynecology
DX: N81.4 Uterovaginal prolapse, unspecified (principal); Z91.89 Other specified personal risk factors, not elsewhere classified; R35.0 Frequency of micturition
CPT/HCPCS: 81001

== ENCOUNTER → 2025-04-14 10:15 | Outpatient (CLI) | payer MEDICARE, BC, SELFPAY ==
--- NOTE | 2025-04-14 10:20 | DI.MRI.S_ITS ---
MR breast BI wo/w con: 04/14/2025. BI-RADS: 2 CLINICAL: 69-year old female for bilateral diagnostic breast MRI. Patient reports a history of right breast carcinoma diagnosed at age 66. Status-post right mastectomy with radiation therapy. Current reported family history of breast cancer: mother. The patient is a BRCA2 gene mutation carrier. PRIOR EXAMS: 05/31/2024, 01/28/2022, 01/25/2021, 01/04/2021, 08/09/2019. MRI TECHNIQUE: Bilateral breast MRI was performed on a 1.5 Stephanie magnet using a dedicated breast coil with mild compression. Axial T1 and T2 STIR sequences were obtained. Dynamic contrast enhanced VIBRANT fat-suppressed sequences were obtained. Delayed sagittal high resolution or sagittal reconstructed isotropic sequence was also obtained. Subtraction images and maximum intensity projection images were obtained. The study was evaluated using [employer] software. IV Contrast: 20 ml ProHance. FIBROGLANDULAR TISSUE Right: Mastectomy. Left: B. Scattered fibroglandular tissue. BACKGROUND PARENCHYMAL ENHANCEMENT Right: Mastectomy. Left: Minimal background parenchymal enhancement. BREAST FINDINGS Right: Status post mastectomy. There is no suspicious mass or non-mass enhancement. There are no abnormal axillary or internal mammary lymph nodes. Left: Surgical clip(s) and/or marker(s) present on the left with benign- appearing duct ectasia noted. There is no suspicious mass or non-mass enhancement. There are no abnormal axillary or internal mammary lymph nodes. IMPRESSION: * No evidence of malignancy with benign findings. RECOMMENDATIONS Left * Annual screening mammography. COMMENTS: The imaging literature indicates that a negative contrast breast MRI examination has a high sensitivity and a moderate specificity for detecting and excluding invasive carcinomas to a detection threshold of 3-5 mm; nonetheless, appropriate clinical and mammographic follow-up are recommended. MRI is not sensitive for detecting DCIS (ductal carcinoma in situ) and may not detect large invasive neoplasms that show only minimal enhancement such as mucinous carcinoma. If there are suspicious calcifications or clinically worrisome palpable masses, then biopsy should still be considered. Invasive neoplasms can be hidden by co-existent and benign enhancement caused by mastitis, hormone therapy effects, radiation therapy, , and recent biopsy or surgery. False positive examinations can occur in a number of circumstances, including breasts that have recently been subject to invasive procedures and those that contain atypical ductal hyperplasia, hormonally stimulated glandular tissue, fat necrosis, or radial scars. OVERALL ASSESSMENT CATEGORY BI-RADS-2: Benign. ELECTRONICALLY SIGNED: Mge Ray M.D. on 04/14/2025 at 04:44:05 PM PT Interpreting Station ID: [id number]
--- NOTE | 2025-04-14 10:21 | DI.MG.S_ITS ---
MM diagnostic mammo unilat LT: 04/14/2025. BI-RADS: 2 CLINICAL: 69-year old female for left diagnostic mammogram. No Tyrer-Cuzick risk score calculation due to the patient's personal history of breast cancer. Patient reports a history of right breast carcinoma diagnosed at age 66. Status-post right mastectomy with radiation therapy. Current reported family history of breast cancer: mother. The patient is a BRCA2 gene mutation carrier. The patient presents for evaluation due to elevated cancer antigen. PRIOR EXAMS 05/31/2024, 01/28/2022, 01/04/2021, 08/09/2019. MAMMOGRAPHY TECHNIQUE: 2D and 3D (tomosynthesis) digital mammographic views obtained, with additional images as needed for full coverage. Current study was also evaluated with a Computer Aided Detection (CAD) system. DENSITY Left: B. There are scattered areas of fibroglandular density. MAMMOGRAPHY FINDINGS Left: Biopsy markers present on the left. There are no suspicious masses, calcifications, or other findings in the breast. IMPRESSION: Left * No evidence of malignancy with benign findings. RECOMMENDATIONS Left * Annual screening mammography. COMMENTS: Findings and recommendations were conveyed to the patient during today's evaluation. The patient is also scheduled for MRI breast later today - please refer to separate report for any additional findings. OVERALL ASSESSMENT CATEGORY BI-RADS-2: Benign. The [employer] recommends annual screening mammography beginning at age 40 for women with average risk of breast cancer. ELECTRONICALLY SIGNED: Meg Ray M.D. on 04/14/2025 at 12:00:29 PM PT Interpreting Station ID: [id number]
== END ==
PROVIDERS: PCP Family Medicine; Referring Provider Internal Medicine Hematology & Oncology; Visit Provider Internal Medicine Hematology & Oncology
DX: C50.411 Malignant neoplasm of upper-outer quadrant of right female breast (principal); N60.42 Mammary duct ectasia of left breast; R97.1 Elevated cancer antigen 125 [CA 125]; Z17.0 Estrogen receptor positive status [ER+]; Z80.3 Family history of malignant neoplasm of breast; R79.89 Other specified abnormal findings of blood chemistry; Z15.01 Genetic susceptibility to malignant neoplasm of breast; Z90.11 Acquired absence of right breast and nipple; R92.323 Mammographic fibroglandular density, bilateral breasts
CPT/HCPCS: 77049; 77065; G0279; A9579

== ENCOUNTER → 2025-05-01 10:29 | Outpatient (CLI) | payer MEDICARE, BC, SELFPAY ==
[2025-05-01 18:56] LABS: Add Manual Diff / Slide Review NO; Hematocrit 43.1 % (36-46); Hemoglobin 15.0 g/dL (12.0-16.0); Lymphocytes Absolute Auto 1800 /uL (1100-4500); Mean Corpuscular HGB Conc 34.8 % (30-36); Mean Corpuscular Hemoglobin 32.0 PG (26-34); Mean Corpuscular Volume 91.9 fL (80-100); Platelet Count 207 X10^3/uL (150-400)
[2025-05-01 19:02] LABS: HEMOLYSIS 23 (0-50); Iron 164 ug/dL (37-170)
[2025-05-01 19:04] LABS: Alanine Aminotransferase 39 IU/L (<35); Albumin 4.4 g/dL (3.5-5.0); Albumin Globulin Ratio 1.6 (1.0-2.8); Alkaline Phosphatase 65 U/L (38-126); Blood Urea Nitrogen 19 mg/dL (7-17); Calcium 9.2 mg/dL (8.4-10.2); Carbon Dioxide 24 mmol/L (22-32); Chloride 102 mmol/L (98-107); Estimated Glomerular Filt Rate > 60 mL/min (>60); Globulin 2.8 g/dL (1.7-4.1); Glucose 110 mg/dL (70-99); HEMOLYSIS 22 (0-50); Potassium 4.3 mmol/L (3.4-5.1); Sodium 134 mmol/L (137-145); Total Protein 7.2 g/dL (6.3-8.2)
[2025-05-01 19:16] LABS: Percent Iron Saturation 48 % (15-50); Total Iron Binding Capacity 340 ug/dL (265-497); Transferrin 279 mg/dL (206-381)
[2025-05-01 19:39] LABS: Ferritin 16 ng/mL (11-264)
== END ==
PROVIDERS: PCP Family Medicine; Referring Provider Internal Medicine Hematology & Oncology; Visit Provider Internal Medicine Hematology & Oncology
DX: C50.411 Malignant neoplasm of upper-outer quadrant of right female breast (principal); R97.1 Elevated cancer antigen 125 [CA 125]; E83.19 Other disorders of iron metabolism; Z17.0 Estrogen receptor positive status [ER+]
CPT/HCPCS: 80053; 82728; 83540; 83550; 85025; 86300; 86304